=== PATIENT | female | born 1950 | race Caucasian/White ===

== ENCOUNTER 2025-04-20 16:49 | Emergency (ER) | payer BC ==
[~2025-04-20] VITALS: Ht 167.6 cm; Wt 63.5 kg
[2025-04-20] MEDS: IV NORMAL SALINE 1000 ML BAG IV ONE (17:14)
[2025-04-20 17:50] LABS: PLATELET COUNT (AUTO) 239 K/uL (179-408); RED BLOOD CELL COUNT(AUTO) 3.26 MIL/uL (3.63-4.92); RED CELL DISTRIBUTION WIDTH 14.3 % (12.3-17.7); WHITE BLOOD COUNT (AUTO) 6.8 K/uL (3.8-11.8)
[2025-04-20 17:57] LABS: CREATININE 0.8 mg/dL (0.6-1.3); SODIUM SERUM 141 mmol/L (136-145); UREA NITROGEN, BLOOD 19 mg/dL (7-18)
[2025-04-20 18:02] LABS: ASPARTATE AMINOTRANSFERASE 11 U/L (15-37); TOTAL PROTEIN, SERUM 7.3 g/dL (6.4-8.2)
[2025-04-20] MEDS ORDERED: ONDANSETRON 4 MG/2 ML VIAL IV PRN (19:15)
[2025-04-20] MEDS ORDERED: MAGNESIUM HYDROXIDE 30 ML LIQUID UDC PO PRN (19:15)
[2025-04-20] MEDS ORDERED: IV NS 1000 ML 1,000 ML IV PRN (19:15)
[2025-04-20] MEDS ORDERED: ACETAMINOPHEN 325 MG TABLET PO PRN (19:15)
[2025-04-20] MEDS ORDERED: REMEDY ESSENTIAL ZINC PASTE 113 GM TP PRN (19:15)
[2025-04-20] MEDS ORDERED: IOHEXOL 350 100 ML INFUS..BTL ONE (20:47)
[2025-04-20 20:56] LABS: *BILIRUBIN,URIN NEGATIVE (NEGATIVE); *BLOOD, URINE NEGATIVE (NEGATIVE); *CLARITY,URINE CLEAR (CLEAR); *COLOR,URINE YELLOW (YELLOW); *KETONES,URINE 1+ (NEGATIVE); *PROTEIN,URINE NEGATIVE (NEGATIVE); *UROBILINOGEN,URINE 0.2 E.U./dl (NORMAL); LEUKOCYTE ESTERASE ,URINE NEGATIVE (NEGATIVE); NITRITE, URINE NEGATIVE (NEGATIVE); UGLUCOSE NEGATIVE (NEGATIVE)
[2025-04-20 21:10] VITALS: BP 130/79
[2025-04-20 21:13] LABS: SQUAMOUS EPITHELIAL CELL,UR FEW /HPF (NONE SEEN)
[2025-04-20] MEDS ORDERED: HYDR-4209 PO (22:26)
[2025-04-20] MEDS ORDERED: ONDA4TAB11 PO (22:26)
[2025-04-20 23:49] VITALS: BP 133/80; O2SAT 98
== END 2025-04-21 01:00 | disposition left against medical advice (07) ==
LOC: ER 17:01
DX: D15.1 Benign neoplasm of heart (principal); R55 Syncope and collapse; M54.9 Dorsalgia, unspecified; J45.909 Unspecified asthma, uncomplicated; Z20.822 Contact with and (suspected) exposure to COVID-19
CPT/HCPCS: 99285; 96360; 71275; 71045; 96361; 87426; 87804 ×2; 80076; 80048; 81001; 83880; 85025; 84145; 85730; 87040 ×2; 87086; 84484 ×2; 36415; 72040; 72100; 72170; 93005; 83605; Q9967; J7040; A4606; A4663